=== PATIENT | male | born 1955 | race Caucasian/White ===

== ENCOUNTER 2017-07-22 07:36 | Inpatient (IN) | payer MEDICAID ==
[~2017-07-22] VITALS: Ht 177.8 cm; Wt 101.3 kg
[2017-07-22] VITALS (7 sets, daily range): BP systolic 161–177; BP diastolic 76–109
[2017-07-22] MEDS ORDERED: LIDOCAINE HCL 1% 20ML VIAL (Pyxis) INJ ONE (09:47)
[2017-07-22] MEDS ORDERED: IODIXANOL 320MG/ML 100 ML BOTTLE IV ONE (09:47)
[2017-07-22] MEDS ORDERED: ASPI-1159 PO (09:55)
[2017-07-22] MEDS ORDERED: ALBU6.7H IH (09:55)
[2017-07-22] MEDS ORDERED: FLUN8.9H IH (09:55)
[2017-07-22] MEDS ORDERED: VASCEPA PO (09:55)
[2017-07-22] MEDS ORDERED: FAMO40TA7 PO (09:55)
[2017-07-22] MEDS ORDERED: INSU100I24 SQ (09:55)
[2017-07-22] MEDS ORDERED: INSU100I13 SQ (09:55)
[2017-07-22] MEDS ORDERED: FENO145T36 PO (09:55)
[2017-07-22] MEDS ORDERED: CLOP75TA33 PO (09:55)
[2017-07-22] MEDS ORDERED: LOSA50TA20 PO (09:55)
[2017-07-22] MEDS ORDERED: GABA-290 PO (09:55)
[2017-07-22] MEDS ORDERED: ERGO500013 PO (09:55)
[2017-07-22] MEDS ORDERED: FENTANYL CITRATE/PF 50MCG/ML 2ML VIAL ONE (10:19)
[2017-07-22] MEDS ORDERED: MIDAZOLAM HCL 2 MG/2 ML VIAL ONE (10:19)
[2017-07-22] MEDS ORDERED: IOVERSOL 240MG/ML 100ML BOTTLE IV ONE (10:21)
[2017-07-22] MEDS ORDERED: DULA1.5P SQ (11:05)
[2017-07-22] MEDS ORDERED: PRAV20TA57 PO (11:05)
[2017-07-22] MEDS ORDERED: TAMS0.4C31 PO (11:05)
[2017-07-22] MEDS ORDERED: ASPIRIN 325MG TABLET ONE (11:43)
[2017-07-22] MEDS ORDERED: CLOPIDOGREL 75MG TABLET ONE (11:44)
[2017-07-22] MEDS ORDERED: HEPARIN SODIUM 1,000 UNIT/1ML VIAL IV ONE (11:51)
[2017-07-22] MEDS ORDERED: MORPHINE SULFATE 2 MG/ML CPJ (NOT FOR IM USE) IV PRN (12:00)
[2017-07-22] MEDS ORDERED: ONDANSETRON HCL 4MG/2ML VIAL IV PRN (12:00)
[2017-07-22] MEDS ORDERED: ACETAMINOPHEN 325MG TABLET PO PRN (12:00)
[2017-07-22] MEDS ORDERED: ATROPINE SULFATE 1MG/10ML SYR IV PRN (12:00)
[2017-07-22] MEDS ORDERED: TRAMADOL 50MG TABLET PO PRN (12:30)
[2017-07-22] MEDS ORDERED: DEXTROSE 50% WATER 50ML SYRINGE IV PRN ×2 (12:30)
[2017-07-22] MEDS: TAMSULOSIN HCL 0.4MG SR CAPSULE PO SCH (12:38)
[2017-07-22] MEDS: LOSARTAN POTASSIUM 50 MG TABLET PO SCH (12:38)
[2017-07-22] MEDS: INSULIN LISPRO 100 UNITS/ML SUBCUT SCH ×3 (12:39→20:44)
[2017-07-22] MEDS: BLOOD SUGAR DIAGNOSTIC STRIP TEST SCH ×2 (16:25→20:34)
[2017-07-22] MEDS ORDERED: MORPHINE SULFATE 4 MG/ML CPJ (NOT FOR IM USE) IV PRN (17:41)
[2017-07-22] MEDS: CLONIDINE 0.1MG TABLET PO PRN (20:32)
[2017-07-22] MEDS ORDERED: ATORVASTATIN CALCIUM 40MG TABLET PO SCH (21:00)
[2017-07-22] MEDS ORDERED: ENALAPRIL 2.5MG/2ML VIAL 2ML IV NR (23:45)
[2017-07-23] VITALS (7 sets, daily range): BP systolic 141–185; BP diastolic 78–100
[2017-07-23] MEDS ORDERED: ENALAPRIL 2.5MG/2ML VIAL 2ML IV NR ×2 (00:45→04:00)
[2017-07-23 05:46] LABS: BASOPHILS % 0.4 % (0.0-2.0); EOSINOPHILS % 0.8 % (0.0-5.0); HEMATOCRIT. 36.5 % (42.0-52.0); HEMOGLOBIN. 12.8 g/dL (14.0-18.0); LYMPHOCYTES % 13.7 % (20.0-50.0); MEAN CORPUSCULAR HEMOGLOBIN 31.1 pg (28.0-32.0); MEAN CORPUSCULAR VOLUME 88.9 fL (80.0-94.0); MEAN PLATELET VOLUME 7.9 fl (7.4-10.4); MONOCYTES % 10.3 % (2.0-8.0); NEUTROPHILS % 74.8 % (40.0-76.0); PLATELET 135 x1000/uL (130-400); RED BLOOD CELL COUNT 4.11 mill/uL (4.7-6.1)
[2017-07-23] MEDS: BLOOD SUGAR DIAGNOSTIC STRIP TEST SCH (06:18)
[2017-07-23] MEDS: CLONIDINE 0.1MG TABLET PO PRN (06:30)
[2017-07-23] MEDS ORDERED: SODIUM POLYSTYRENE SULFONATE 15 G/60 ML BOT PO ONE (08:00)
[2017-07-23] MEDS: LOSARTAN POTASSIUM 50 MG TABLET PO SCH (08:23)
[2017-07-23] MEDS: TAMSULOSIN HCL 0.4MG SR CAPSULE PO SCH (08:23)
[2017-07-23] MEDS: INSULIN LISPRO 100 UNITS/ML SUBCUT SCH (08:24)
[2017-07-23] MEDS ORDERED: CLOPIDOGREL 75MG TABLET PO SCH (09:00)
[2017-07-23] MEDS ORDERED: ASPIRIN 325MG TABLET PO SCH (09:00)
== END 2017-07-23 12:36 | disposition home or self-care (01) | DRG 181 ==
LOC: CCL 07:36 → 3WST 07:37
PROVIDERS: ADMIT Specialist; ATTEND Specialist
PROC: 047K3Z1 Dilation of Right Femoral Artery using Drug-Coated Balloon, Percutaneous Approach (ICD-10-PCS; principal; 2017-07-22)
PROC: 047M3Z1 Dilation of Right Popliteal Artery using Drug-Coated Balloon, Percutaneous Approach (ICD-10-PCS; 2017-07-22)
PROC: B41F1ZZ Fluoroscopy of Right Lower Extremity Arteries using Low Osmolar Contrast (ICD-10-PCS; 2017-07-22)
DX: T82.856A Stenosis of peripheral vascular stent, initial encounter (principal); E11.22 Type 2 diabetes mellitus with diabetic chronic kidney disease; I73.9 Peripheral vascular disease, unspecified; I12.9 Hypertensive chronic kidney disease with stage 1 through stage 4 chronic kidney disease, or unspecified chronic kidney disease; N18.9 Chronic kidney disease, unspecified; Y83.8 Other surgical procedures as the cause of abnormal reaction of the patient, or of later complication, without mention of misadventure at the time of the procedure; Y92.89 Other specified places as the place of occurrence of the external cause
CPT/HCPCS: 36415; 37224; 75710; 80048; 80061; 82962; 83036; 85025; 85347; C1725; C1760; C1769; C1893; C1894; C2623; J1644; J1815; J2250; J3010; J3490; J7030; Q9967